=== PATIENT | female | born 1975 | race American Indian/Alaskan Native ===

== ENCOUNTER 2016-05-16 11:18 | Outpatient (CLI) | payer OTHER ==
--- NOTE | 2016-05-16 12:43 | Mammography Report ---
LEFT DIGITAL DIAGNOSTIC MAMMOGRAM: 05/16/16 11:18:00 CLINICAL: For clip placement immediately status post ultrasound biopsy. COMPARISON:[facility] 01/01/16 mammogram. FINDINGS: A biopsy clip is now identified within the left subareolar mass. IMPRESSION: Concordant clip placement status post ultrasound biopsy. BI-RADS CATEGORY: 4A--Mildly Suspicious Pathology pending.
--- NOTE | 2016-05-16 12:56 | Ultrasound Report ---
ULTRASOUND GUIDED NEEDLE CORE BIOPSY LEFT BREAST WITH CLIP PLACEMENT: 05/16/16 CLINICAL: Left subareolar breast mass. COMPARISON :[facility] mammogram and left breast ultrasound 01/01/16 FINDINGS: The procedure was explained to the patient and informed consent was obtained. Ultrasound demonstrated the previously described left subareolar mass. The mass is solid and hypoechoic with an irregular margin. However, an excoriated reddened focal area on the areola is at the center of the mass and is suggestive of a sebaceous cyst with communication to the skin. I marked the breast with a felt tip marker and a time out was called. The skin was prepped with Betadine and anesthetized with 1% lidocaine. Needle core biopsy was performed through a tiny dermatotomy using ultrasound guidance, 2% lidocaine with epinephrine for deep anesthesia and a 14-gauge Achieve biopsy device. Imaging demonstrated satisfactory sampling. Three cores were obtained and placed in formalin. A clip was then placed within the lesion. The patient tolerated the procedure well and there were no apparent complications. Hemostasis was achieved with gentle pressure and a sterile dressing was applied. A two view mammogram demonstrated satisfactory deployment of the clip. She left the department in good condition and was given instructions for wound care and followup. IMPRESSION: Uncomplicated ultrasound guided needle core biopsy with clip placement left breast.
== END 2016-05-16 11:19 | disposition home or self-care (01) ==
LOC: SPVWC 11:18
DX: N63 Unspecified lump in breast (principal); N64.89 Other specified disorders of breast
CPT/HCPCS: 19083; A4648; G0206; 88305